=== PATIENT | male | born 2000 | race Caucasian/White ===

== ENCOUNTER 2023-08-19 17:43 | Emergency (ER) | payer BC, OTHER | END 2023-08-19 18:12 | disposition home or self-care (01) | LOC: MADERS 17:43 | DX: H66.92 Otitis media, unspecified, left ear (principal); E11.9 Type 2 diabetes mellitus without complications | CPT/HCPCS: 99282 ==

== ENCOUNTER 2024-04-02 21:11 | Emergency (ER) | payer OTHER ==
[2024-04-02] MEDS ORDERED: Albuterol 200 PUFF (6.7GM INHALER) ONE (21:48)
[2024-04-02] MEDS ORDERED: Benzonatate 100 MG CAP ONE (21:48)
[2024-04-02] MEDS ORDERED: Mag-Al 1200 mg/1200 mg/30 ML UDCUP ONE (21:48)
[2024-04-02] MEDS ORDERED: Lidocaine Viscous Sol 2% 15 ml UD Cup ONE (21:48)
== END 2024-04-02 22:45 | disposition home or self-care (01) ==
LOC: MADERS 21:11
DX: R05.3 Chronic cough (principal); E11.9 Type 2 diabetes mellitus without complications
CPT/HCPCS: 71046; 87428